=== PATIENT | male | born 1970 | race Caucasian/White ===

== ENCOUNTER 2019-09-08 14:06 | Emergency (ER) | payer SELFPAY ==
[~2019-09-08] VITALS: Ht 167.6 cm; Wt 90.9 kg
[2019-09-08 14:25] VITALS: Ht 167.6 cm; Wt 90.9 kg
[2019-09-08] MEDS ORDERED: BAYER CHEWABLE81 MG PO (14:27)
[2019-09-08] MEDS ORDERED: LISINOPRIL20 MG PO (14:27)
[2019-09-08 14:48] LABS: EOSINOPHILS 2.4 % (0-7); HEMATOCRIT 45.6 % (42.0-54.0); IMMATURE GRANULOCYTES 0.4 % (0-5); LYMPHOCYTES 41.2 % (15-50); MCH 33.5 pg (26.0-34.0); MCHC 35.1 g/dL (31.0-37.0); MCV 95.4 fL (80.0-100.0); MEAN PLATELET VOLUME 13.2 fL (7.4-10.4); PLATELET COUNT 105 10x3/uL (130-400); RBC 4.78 10x6/uL (4.20-6.10); RDW 12.4 % (11.5-14.5)
[2019-09-08 15:01] LABS: APTT 25.7 SECONDS (22.8-39.4); INR 0.99 (0.85-1.17)
[2019-09-08 15:02] LABS: CALC OSMOLALITY 278 mosm/kg (275-300); CALCIUM 8.7 mg/dL (8.5-10.1); CARBON DIOXIDE 28.2 mmol/L (21.0-32.0); CHLORIDE - SERUM 104 mmol/L (98-107); GLUCOSE 114 mg/dL (74-106); POTASSIUM - SERUM 4.2 mmol/L (3.5-5.1); SODIUM 139 mmol/L (136-145); UREA NITROGEN 12 mg/dL (7-18); eGFR NON AFRICAN AMERICAN 84 mL/min (90-120)
[2019-09-08 15:17] LABS: ALKALINE PHOSPHATASE 54 U/L (30-120); ALT (SGPT) 73 U/L (10-68); BILIRUBIN - TOTAL 0.82 mg/dL (0.2-1.3); CKMB 0.9 U/L (0.0-3.6); CREATINE KINASE 74 UL (21-232); PROTEIN - SERUM 6.8 g/dL (6.4-8.2)
[2019-09-08 15:22] LABS: TROPONIN-I < 0.017 ng/mL (0.000-0.060)
[2019-09-08] MEDS ORDERED: NAPROSYN500 MG PO (18:35)
[2019-09-08] MEDS ORDERED: PROTONIX40 MG PO (18:35)
[2019-09-08 19:19] VITALS: BP 156/96
== END 2019-09-08 19:20 | disposition home or self-care (01) ==
LOC: D.ER 14:06
PROVIDERS: Family Medicine
DX: R07.89 Other chest pain (principal); R20.0 Anesthesia of skin; I10 Essential (primary) hypertension; M79.605 Pain in left leg